=== PATIENT | female | born 1990 | race Caucasian/White ===

== ENCOUNTER 2018-10-21 12:15 | Emergency (ER) | payer OTHER ==
[2018-10-21] MEDS ORDERED: ASPIRIN 81 MG CHEWABLE TAB PO ONE (12:25)
[2018-10-21] MEDS ORDERED: NS 1,000 ML IV ONE (13:17)
[2018-10-21] MEDS ORDERED: MAG HYDROX/AL HYDROX/SIMETH 30 ML UDCUP PO ONE (13:48)
[2018-10-21] MEDS ORDERED: HYOSCYAMINE SULFATE 0.125 MG TAB PO ONE (13:49)
--- NOTE | 2018-10-21 13:50 | EDPHY ---
H & P <Elda Mart - Last Filed: 10/21/18 15:37> Smoking Status: Never smoked <Jacob Yu - Last Filed: 10/23/18 15:43> Time Seen by Provider: 10/21/18 12:24 HPI/ROS: This patient awakened at 1:00 a.m. Due to her toddler crying and noticed right- sided chest pressure 7/10 intensity initially without radiation worse with a deep breath associated with dyspnea and mild lightheadedness. She also had associated nausea but no vomiting. The pain is been constant since its onset 1: 00 a.m. But is diminished in intensity since taking 800 mg of ibuprofen at 7:00 a.m. To occurred 4/10 intensity. Pain now radiates down her right arm and she has a heavy feeling to the right arm. She explains that she feels like her right arm is swollen although it does not appear swollen. She does not recall having this pain before. She came in by private vehicle with a co-worker for evaluation of the symptoms. ROS: Constitutional: No fevers or chills. HEENT: She reports mild nasal congestion over the past week that she attributes to a viral URI. No other HEENT complaints Pulmonary: No cough. She does have moderate dyspnea. She describes this as "not being able to take full breath". Cardiovascular: She denies any lower extremity swelling or calf pain. GI: Nausea and loose bowel movement today. No bloody stools. No abdominal pain. She denies any GERD symptoms : Last menstrual period was normal timing. No symptoms currently. Integumentary: She denies diaphoresis. No pallor. 10 point review of symptoms is performed and otherwise negative with exception of pertinent positives and negatives listed in HPI and ROS (Jacob Yu) Past Medical/Surgical History: Family history is negative for DVT, PE or premature coronary artery disease. ( Jacob Yu) Social History: Works in childcare. No drug use. Occasional alcohol. mother of a 6-year-old , 3-year-old 1-year-old daughter (Jacob Yu) Physical Exam: General Appearance: Moderately obese 28-year-old female Alert, no distress. Eyes: Pupils equal and round no pallor or injection. ENT, Mouth: Mucous membranes moist. Respiratory: There are no retractions, lungs are clear to auscultation. Cardiovascular: Tachycardic with no murmur gallop rub. No peripheral edema. No swelling or tenderness to the calves. She has mild chest wall tenderness but feels there is a pain deeper within her chest as well. Palpation of the chest wall does not entirely reproduces her symptoms. Gastrointestinal: Abdomen is soft and nontender, no masses, bowel sounds normal. Neurological: GCS 15 Skin: Warm and dry, no rashes. Musculoskeletal: Neck is supple nontender. Extremities are symmetrical, full range of motion. Psychiatric: Mood and affect are normal DIFFERENTIAL DIAGNOSIS: After history and physical exam differential diagnosis was considered for pulmonary embolism, GERD with esophageal spasm, premature coronary artery disease, pneumothorax, pneumonia, musculoskeletal chest pain with anxiety (Jacob Yu) Constitutional: Initial Vital Signs Temperature (C) 36.6 C 10/21/18 12:23 Heart Rate 116 H 10/21/18 12:23 Respiratory Rate 16 10/21/18 12:23 Blood Pressure 150/96 H 10/21/18 12:23 O2 Sat (%) 100 10/21/18 12:23 O2 Delivery Mode Room Air Allergies/Adverse Reactions: No Known Allergies Allergy (Verified 10/21/18 12:22) Home Medications: Medication Instructions Recorded Bcp 10/21/18 Sertraline HCl [Zoloft 50mg (*)] 10/21/18 MDM/Departure - [facility] Imaging: Discussed imaging studies w/ orthodontist assistant Radiologist <Elda Mart - Last Filed: 10/21/18 15:37> - [facility] Imaging: I viewed and interpreted images myself <Jacob Yu - Last Filed: 10/23/18 15:43> - [facility] Diagnostics: Initial 12 lead EKG performed at 12:36 p.m. Indication chest pain Sinus tachycardia 103 Intervals: Normal throughout [place]: P of 90, QRS of 69, T 56 ST segments: Patient has T inversions anteriorly extend through V3 with poor R- wave progression anteriorly. Overall assessment sinus tachycardia with borderline T-wave abnormalities chest question lead placement on anterior leads Repeat EKG status post or repositioning of leads performed at 3:15 p.m. Reveals sinus rhythm at 83. Intervals normal Fax is normal ST segments: Normal throughout Overall assessment: Normal EKG Two view chest x-ray: Normal by my interpretation (Jacob Yu) Imaging Results: CT scan of the chest with IV contrast read as negative per radiologist. No PE, pneumonia, pleural effusion, vascular or solid organ abnormality. (Elda Mart) Medications Given: Discontinued Medications Al Hydroxide/Mg Hydroxide (Maalox Susp) 30 ml PO EDNOW ONE Stop: 10/21/18 13:49 Last Admin: 10/21/18 14:10 Dose: 30 ml Aspirin (Aspirin) 324 mg PO EDNOW ONE Stop: 10/21/18 12:26 Last Admin: 10/21/18 12:32 Dose: 324 mg Hyoscyamine Sulfate (Levsin, Hyomax-Sl) 0.125 mg PO EDNOW ONE Stop: 10/21/18 13:50 Last Admin: 10/21/18 14:10 Dose: 0.125 mg Sodium Chloride (Ns) 1,000 mls @ 0 mls/hr IV ONCE ONE PRN Reason: Wide Open Stop: 10/21/18 13:18 Last Admin: 10/21/18 13:20 Dose: 1,000 mls ED Course/Re-evaluation: Aspirin, monitor Maalox and Levsin without significant change in symptoms I consult Dr. Almanza regarding the patient's initial EKG suggests that V3 may be positioned to close to V2 given lack of normal transition in terms of R-wave progression. Given this finding wall proceed with a no charge on the 2nd EKG, reposition leads and will repeat the EKG. Labs: Normal CBC, basic metabolic panel, troponin and D-dimer Given the patient's ongoing significant pleuritic symptoms will proceed with CT angio chest to rule out pulmonary embolism. At 3:00 p.m. I discussed this case with oncoming emergency physician Dr. Mart will follow up on CT angio chest and final disposition for this patient. If her CT angio is negative for pulmonary embolism and anticipate discharge home. ( Jacob Yu) Differential Diagnosis: Accepted care of patient at the end of Dr. Yu's shift, approximately 3:15 p.m.. Reviewed history of present illness, physical findings, laboratory and radiology evaluation. Disposition pending CT PE for chest pain. CT result with essentially normal exam, no abnormalities to explain chest pain. Reviewed with patient. Discussed return precautions and follow-up. Stable for discharge. (Elda Mart) - Depart Disposition: Home, Routine, Self-Care Clinical Impression: Pleurisy Clinical Impression: (Ruled Out): Scabies Condition: Good Instructions: Chest Pain (ED), Noncardiac Chest Pain (ED) Additional Instructions: Use ibuprofen as discussed. You should follow up with your primary care physician in 3-5 days if pain is persistent. You are welcome to return to the emergency department if you develop new, concerning symptoms. Stand Alone Forms: Work Excuse Referrals: NONE *PRIMARY CARE P,. [Primary Care Provider] - As per Instructions Scot Gtz MD [Medical Doctor] - As per Instructions
[2018-10-21] MEDS ORDERED: IOPAMIDOL (ISOVUE 370) 100 ML BTL IV ONE (14:51)
[2018-10-21 16:04] VITALS: BP 100/65
--- NOTE | 2018-10-23 15:42 | CPEKG ---
Test Reason : OPEN Blood Pressure : / mmHG Vent. Rate : 085 BPM Atrial Rate : 086 BPM P-R Int : 120 ms QRS Dur : 083 ms QT Int : 375 ms P-R-T Axes : 092 072 057 degrees QTc Int : 446 ms Sinus rhythm Borderline T abnormalities, anterior leads Confirmed by Jacob Yu ([id number]) on 10/23/2018 3:42:26 PM Referred By: Jacob Yu Confirmed By:Jacob Yu
--- NOTE | 2018-10-26 14:45 | CPEKG ---
Test Reason : OPEN Blood Pressure : / mmHG Vent. Rate : 103 BPM Atrial Rate : 103 BPM P-R Int : 129 ms QRS Dur : 087 ms QT Int : 343 ms P-R-T Axes : 090 069 056 degrees QTc Int : 449 ms Sinus tachycardia Borderline T abnormalities, anterior leads Confirmed by Lucia Nicholson ([id number]) on 10/26/2018 2:44:44 PM Referred By: LUCIA NICHOLSON Confirmed By:Lucia Nicholson
== END 2018-10-21 16:00 | disposition home or self-care (01) ==
LOC: CED 12:15
DX: R09.1 Pleurisy (principal); M79.601 Pain in right arm; R42 Dizziness and giddiness; R11.0 Nausea
CPT/HCPCS: 71046-PO; 71275-PO; 80048-ER; 84484-ER; 96360-ER; Q9967